=== PATIENT | female | born 1935 | race Caucasian/White ===

== ENCOUNTER 2020-06-12 08:07 | Day surgery (SDC) | payer MEDICARE ==
[~2020-06-12] VITALS: Ht 152.4 cm; Wt 60.1 kg
[~2020-06-12 08:07] MED LIST: ANAS1TAB10 PO; LEVO25TA2 PO; SPIR25TA5 PO
[2020-06-12 08:40] VITALS: BP 123/59
[2020-06-12] MEDS ORDERED: albumin 25% 100mL bottle x 1 IV PRN (08:50)
[2020-06-12 09:45] VITALS: BP 119/56
== END 2020-06-12 10:07 | disposition home or self-care (01) ==
LOC: SSTAY O 08:07
PROVIDERS: ATTEND Radiology Vascular & Interventional Radiology
DX: R18.8 Other ascites (principal); Z53.8 Procedure and treatment not carried out for other reasons; R14.0 Abdominal distension (gaseous); Z85.3 Personal history of malignant neoplasm of breast; Z87.19 Personal history of other diseases of the digestive system; Z98.890 Other specified postprocedural states; Z88.8 Allergy status to other drugs, medicaments and biological substances; Z88.0 Allergy status to penicillin; Z88.1 Allergy status to other antibiotic agents
CPT/HCPCS: 76705

== ENCOUNTER 2021-11-19 06:50 | Day surgery (SDC) | payer MEDICARE ==
[2021-11-12 15:14] LABS: BASOPHILS % (AUTO) 0.3 % (0-1); EOSINOPHILS % (AUTO) 0.9 % (0-6); LYMPHOCYTES # (AUTO) 0.5 X10'3 (1.1-4.8); LYMPHOCYTES % (AUTO) 8.2 % (21-51); MEAN CORPUSCULAR HEMOGLOBIN 34.9 PG (27.0-31.0); MEAN CORPUSCULAR HGB CONC 34.4 g/dL (33.0-36.5); MEAN CORPUSCULAR VOLUME 101.5 FL (78-98); MEAN PLATELET VOLUME 7.3 FL (7.4-10.4); MONOCYTES # (AUTO) 0.5 X10'3 (0-0.9); MONOCYTES % (AUTO) 8.6 % (2-12); NEUTROPHILS # (AUTO) 4.5 X10'3 (1.8-7.7); PRE OP HEMATOCRIT 33.1 % (35.0-45.0); PRE OP HEMOGLOBIN 11.4 g/dL (12.0-16.0); PRE OP PLATELET COUNT 148 X10'3 (140-440); RED BLOOD COUNT 3.26 X10'6 (4.20-5.60); RED CELL DISTRIBUTION WIDTH 13.3 % (11.5-14.5)
[2021-11-12 15:33] LABS: ALBUMIN 3.6 G/DL (3.4-5.0); ALBUMIN/GLOBULIN RATIO 1.1 (1.1-1.5); ALKALINE PHOSPHATASE 142 IU/L (46-116); BLOOD UREA NITROGEN 14 MG/DL (7-18); BUN/CREATININE RATIO 11.5 (6.6-38.0); CALCIUM 8.9 MG/DL (8.5-10.1); CHLORIDE 99 MMOL/L (99-107); CREATININE 1.22 MG/DL (0.40-0.90); PRE OP ALT 46 U/L (30-65); PRE OP ANION GAP 7 (8-16); PRE OP AST 43 U/L (10-37); PRE OP BILIRUB, TOTAL 1.3 MG/DL (0.0-1.0); PRE OP GLUCOSE 149 MG/DL (70-104); PRE OP POTASSIUM 5.1 MMOL/L (3.4-5.1); eGFR 42 ML/MIN
[2021-11-12 15:36] LABS: PRE OP SODIUM 130 MMOL/L (135-145)
[2021-11-19] VITALS (17 sets, daily range): BP systolic 107–138; BP diastolic 52–71
[~2021-11-19] VITALS: Ht 152.4 cm; Wt 54.0 kg
[~2021-11-19 06:50] MED LIST changes: -ANAS1TAB10 PO; -LEVO25TA2 PO; +LEVO50TA8 PO; -SPIR25TA5 PO; +SPIR50TA5 PO; +ceFAZolin inj. 2,000 MG in dextrose 5%-water 100 ML IV ONE; +famotidine 20mg tablet PO ONE; +ringers solution, lacted 1,000 ML IV SCH
[2021-11-19 08:02] LABS: ALANINE AMINOTRANSFERASE 33 U/L (12-78); ALBUMIN 3.4 G/DL (3.4-5.0); ALBUMIN/GLOBULIN RATIO 1.2 (1.1-1.5); ALKALINE PHOSPHATASE 117 IU/L (46-116); ANION GAP 11 (8-16); ASPARTATE AMINO TRANSFERASE 41 U/L (10-37); BILIRUBIN,TOTAL 2.2 MG/DL (0.1-1.0); BLOOD UREA NITROGEN 19 MG/DL (7-18); CALCIUM 8.6 MG/DL (8.5-10.1); CHLORIDE 104 MMOL/L (99-107); CREATININE 1.19 MG/DL (0.40-0.90); GLUCOSE 107 MG/DL (70-104); POTASSIUM 4.2 MMOL/L (3.5-5.1); SODIUM 137 MMOL/L (135-145); TOTAL CARBON DIOXIDE 22.3 MMOL/L (24-32); TOTAL PROTEIN 6.3 G/DL (6.4-8.2); eGFR 43 ML/MIN
[2021-11-19] MEDS ORDERED: ringers solution, lacted 1,000 ML IV SCH (08:15)
[2021-11-19] MEDS ORDERED: proCHLORperazine 10 MG/2 ml inj IV PRN (08:15)
[2021-11-19] MEDS ORDERED: morphine 4 MG/ML inj SYRINge IV PRN (08:15)
[2021-11-19] MEDS ORDERED: ondansetron/PF 4mg/2ml inj IV PRN (08:15)
[2021-11-19] MEDS ORDERED: meperidine/PF 25mg/ml syringe IV PRN ×3 (08:15)
[2021-11-19] MEDS ORDERED: morphine 2 MG/ML inj. syringe IV PRN (08:15)
[2021-11-19] MEDS ORDERED: BUPIVAcaine/PF 2.5 mg/ml (0.25%) 30ml vial ONE (08:47)
[2021-11-19] MEDS ORDERED: LIDOcaine 1% 30ml preserv. free vial ONE (08:47)
[2021-11-19] MEDS ORDERED: midazolam 1 mg/ML 2ml injection ONE (09:12)
[2021-11-19] MEDS ORDERED: fentaNYL/PF 50MCG/1 ML 2ML syringe ONE (09:12)
[2021-11-19] MEDS ORDERED: ondansetron/PF 4mg/2ml inj ONE (09:39)
[2021-11-19] MEDS ORDERED: propofol inj 20 ML IV ONE (09:39)
[2021-11-19] MEDS ORDERED: LIDOcaine 2% (20mg/ml) 5ml vial ONE (09:39)
--- NOTE | 2021-11-19 09:58 | NUR ---
Received from OR via [facility] IN STABLE CONDITION , accompanied by Anesthesiologist and MARKET RESEARCH ANALYST report given by MARKET RESEARCH ANALYST AND Anesthesiolgist. Addendum: 11/19/21 at 1009 by Jeanie Ni RN Amended: Links added.
[2021-11-19] MEDS ORDERED: HYDROcodone/acetaminophen 5mg/325mg tablet PO PRN (10:05)
--- NOTE | 2021-11-19 12:28 | NUR ---
PATIENT DISCHARGED FROM PACU IN STABLE CONDITION AFTER WRITTEN AND VERBAL DISCHARGE INSTRUCTIONS GIVEN. PATIENT GAVE VERBAL UNDERSTANDING OF INSTRUCTIONS. PATIENT LEFT FACILITY VIA WHEELCHAIR WITH RN. Addendum: 11/19/21 at 1254 by Jeanie Ni RN Amended: Links added.
== END 2021-11-19 12:28 | disposition home or self-care (01) ==
LOC: PAS 06:50
PROVIDERS: ATTEND Surgery
DX: K42.9 Umbilical hernia without obstruction or gangrene (principal); E03.9 Hypothyroidism, unspecified; Z79.899 Other long term (current) drug therapy; Z98.890 Other specified postprocedural states; Z88.0 Allergy status to penicillin; Z88.8 Allergy status to other drugs, medicaments and biological substances
CPT/HCPCS: 36415; 49585; 80053; 82948; 85025; 87811; 93005; C1781; J0690; J2250; J2405; J2704; J3010; J3490; J7030; J7060; J7120; Z7506; Z7512; A4618; A7000

== ENCOUNTER 2023-08-04 13:50 | Outpatient (CLI) | payer MEDICARE, MEDICAID ==
[~2023-08-04 13:50] MED LIST changes: -ceFAZolin inj. 2,000 MG in dextrose 5%-water 100 ML IV ONE; -famotidine 20mg tablet PO ONE; -ringers solution, lacted 1,000 ML IV SCH
== END 2023-08-04 23:59 | disposition home or self-care (01) ==
LOC: RAD 13:50
PROVIDERS: ATTEND Nurse Practitioner Primary Care
DX: M54.50 Low back pain, unspecified (principal); M19.09 Primary osteoarthritis, other specified site
CPT/HCPCS: 72100; 72220